=== PATIENT | female | born 1995 | race Caucasian/White ===

== ENCOUNTER 2020-02-08 14:24 | Emergency (ER) | payer OTHER | END 2020-02-08 16:40 | disposition home or self-care (01) | LOC: ERS 14:24 | DX: S51.011A Laceration without foreign body of right elbow, initial encounter (principal); S16.1XXA Strain of muscle, fascia and tendon at neck level, initial encounter; S46.911A Strain of unspecified muscle, fascia and tendon at shoulder and upper arm level, right arm, initial encounter; S70.10XA Contusion of unspecified thigh, initial encounter; V49.9XXA Car occupant (driver) (passenger) injured in unspecified traffic accident, initial encounter | CPT/HCPCS: 99283 ==